=== PATIENT | male | born 1935 | race Caucasian/White ===

== ENCOUNTER 2016-12-06 18:31 | Emergency (ER) | payer BC ==
[~2016-12-06 18:31] MED LIST: ALAWAY0.025 % OPH; ALPHAGAN OPH; ALPHAGAN P0.1 % OPH; ASAB PO; ASABAYER PO; ATRONASAL3 NAS; AVELOX400 PO; BL FLAX SEED1000 MG PO; CALTRAT600 PO; CETIRIZINE5 MG PO; CHLOR-TRIMETON4 MG OR; CIP5 PO; COLON CLEANSE PO; COSOPT OPH; DORZOL/TIMOL1 ML OP; FERROUS SULF325 M1 PO; FISH-EPA1000 MG PO; FLOMAX4 PO; FOSAMAX70 MG PO; LEVAQUIN750 MG PO; LEVOTHYROXIN100 MCG PO; LEVOTHYROXIN125 MCG PO; LEVOTHYROXIN88 MCG PO; LINZESS 145 M145 MCG PO; LIPITOR20 PO; LIPITOR40 PO; LOP25 PO; LOPID6 PO; OS500+D PO; PRAV10 PO; PRILO PO; PROAIR HFA INH; PROSCAR5 PO; PROTONIX PO; SAW PALMETTO PO; SYN.15 PO; TETRABENAZINE 12.5 MG PO; TOPXL25 PO; TUSSIONEX1 ML PO; VIGAMOX OPH; VITAMIN B-121000 MC1 SL; VITAMIN D PO; VITAMIN D1000 UNI1 PO; VITAMIN D400 UNI1 PO; WELLXL150 PO; XALAT OPH; [UNRECOGNIZED DRUG - OTHER] PO; [UNRECOGNIZED DRUG - REMARK]
[2016-12-06 19:28] LABS: BASOPHILS 0 %; EOSINOPHILS 1.1 %; EOSINOPHILS ABSOLUTE 0.09 10/3/uL (0.0-0.53); ER CBC TAT 0 Hrs 03 Mins; HEMATOCRIT 34.3 % (40.0-51.0); HEMOGLOBIN 11.9 g/dL (13.6-17.8); IMMATURE GRANULOCYTES 0.2 %; IMMATURE GRANULOCYTES ABSOLUTE 0.02 10/3/uL (0.0-0.11); LYMPHOCYTES 3.4 %; LYMPHOCYTES ABSOLUTE 0.29 10/3/uL (0.67-4.30); MEAN CORPUS HGB CONC 34.7 g/dL (32.0-36.0); MEAN CORPUSCULAR HEMOGLOB 33.2 pg (26.0-34.0); MEAN CORPUSCULAR VOLUME 95.8 fL (80-100); MEAN PLATELET VOLUME 8.4 fL (9.2-13.0); MONOCYTES 0.8 %; MONOCYTES ABSOLUTE 0.07 10/3/uL (0.21-1.20); NEUTROPHILS 94.5 %; NEUTROPHILS ABSOLUTE 7.99 10/3/uL (2.02-8.40); PLATELET COUNT 167 10/3/uL (150-400); RBC DISTRIBUTION WIDTH 13.2 % (12.0-16.0); RED CELL COUNT 3.58 10/6/uL (4.7-6.1); WHITE BLOOD CELLS 8.5 10/3/uL (4.5-10.5)
[2016-12-06 19:33] LABS: MANUAL DIFF NO %
[2016-12-06 19:39] LABS: ASCORBIC ACID (UR NOT ORDER) 20 (NEG); BILIRUBIN, URINE NEGATIVE (NEG); ER URINALYSIS TAT 0 Hrs 18 Mins; KETONE, URINE NEGATIVE (NEG); LEUKOCYTE ESTERASE(NOT OR LARGE (NEG)
[2016-12-06 19:40] LABS: NITRITE (URINE) POS (NEG); WBC (NOT ORDERED) (RFLEX) > 182 (0-5)
[2016-12-06 19:43] LABS: A/G RATIO 0.9 (0.7-1.9); ALBUMIN 2.9 G/DL (3.5-5.0); BUN (BLOOD UREA NITROGEN) 13 MG/DL (6-23); CALCIUM, SERUM 8.2 MG/DL (8.5-10.4); CHLORIDE, SERUM 98 MMOL/L (96-112); CO2 (CARBON DIOXIDE) 24 MMOL/L (24-34); CREATININE 1.05 MG/DL (0.70-1.30); GFR AFRICAN AMERICAN 76 ML/MIN (>=60); GFR NON AFRICAN AMERICAN 66 ML/MIN (>=60); GLOBULIN 3.3 G/DL (2.5-4.1); GLUCOSE, SERUM 108 MG/DL (60-99); POTASSIUM, SERUM 4.4 MMOL/L (3.5-5.3); SGOT(AST) 10 U/L (5-40); SGPT(ALT) 10 U/L (5-65); TOTAL BILIRUBIN 0.8 MG/DL (0-1.2); TOTAL PROTEIN 6.2 G/DL (6.0-8.5)
[2016-12-06 19:44] LABS: ALKALINE PHOSPHATASE 75 U/L (45-117); SODIUM, SERUM 130 MMOL/L (135-148)
[2016-12-06 19:47] LABS: BAND NEUTROPHILS 9 %; ER DIFF TAT 0 Hrs 22 Mins; LYMPHOCYTES 5 %; LYMPHOCYTES ABSOLUTE (CALC) 0.43 10/3/uL (0.67-4.30); NEUTROPHILS ABSOLUTE (CALC) 8.08 10/3/uL (2.02-8.40); PLATELET ESTIMATE ADQ (ADEQUATE); SEGMENTED NEUTROPHIL (0) 86 %; TOTAL NUCLEATED CELLS 100
[2016-12-06 19:48] LABS: OVALOCYTES 1+ (3-10/OIF) (0-2/OIF); TEARDROP SHAPED RBCS OCC (0-2/OIF)
[2016-12-24] MEDS ORDERED: TETRABENAZINE PO (11:13)
[2016-12-24] MEDS ORDERED: LEVOTHYROXIN137 MCG PO (11:14)
[2016-12-24] MEDS ORDERED: PROTONIX PO (11:14)
[2016-12-24] MEDS ORDERED: FERROUS SULFATE PO (11:16)
[2016-12-24] MEDS ORDERED: SIN25 PO (11:17)
[2016-12-24] MEDS ORDERED: VITAMIN B-12 PO (11:17)
[2016-12-24] MEDS ORDERED: FISH OIL PO (11:18)
[2016-12-24] MEDS ORDERED: ASABAYER PO (11:18)
[2016-12-24] MEDS ORDERED: CALCIUM PO (11:18)
[2016-12-24] MEDS ORDERED: LIPITOR20 PO (11:18)
[2016-12-24] MEDS ORDERED: COSOPT OPH (11:19)
[2016-12-24] MEDS ORDERED: ALPHAGAN OPH (11:19)
[2016-12-24] MEDS ORDERED: XALAT OPH (11:20)
[2017-03-12] MEDS ORDERED: SIN25 PO (13:50)
[2017-03-12] MEDS ORDERED: BACDS PO (13:51)
[2017-03-12] MEDS ORDERED: ATRONASAL6 NAS (13:52)
[2017-03-12] MEDS ORDERED: FERROUS SULF325 M1 PO (13:52)
[2017-03-12] MEDS ORDERED: PROTONIX PO (13:54)
[2017-03-12] MEDS ORDERED: TETRABENAZINE 12.5 MG PO (13:54)
[2017-03-12] MEDS ORDERED: SYNTHROID137 MCG PO (13:54)
[2017-03-12] MEDS ORDERED: STIOLTO RESPIMAT4 GM INH (13:55)
[2017-03-12] MEDS ORDERED: XALAT OPH (13:55)
[2017-03-12] MEDS ORDERED: LIPITOR40 PO (13:55)
[2017-03-12] MEDS ORDERED: ALPHAGAN OPH (13:56)
[2017-03-12] MEDS ORDERED: COSOPT OPH (13:56)
[2017-03-12] MEDS ORDERED: DUONEB INH ×2 (13:57→13:58)
[2017-03-12] MEDS ORDERED: PROAIR HFA INH (13:58)
[2017-03-12] MEDS ORDERED: ASAB PO (13:59)
[2017-03-12] MEDS ORDERED: CALCIUM PO (14:00)
[2017-03-12] MEDS ORDERED: VITAMIN B-12 PO (14:00)
[2017-03-12] MEDS ORDERED: MIRALAX POWDER1 PKT PO (14:01)
[2017-03-12] MEDS ORDERED: FISH OIL PO (14:01)
== END 2016-12-06 22:02 | disposition home or self-care (01) ==
LOC: ER 18:31
PROVIDERS: Emergency Medicine
DX: N39.0 Urinary tract infection, site not specified (principal); Z95.1 Presence of aortocoronary bypass graft; Z86.73 Personal history of transient ischemic attack (TIA), and cerebral infarction without residual deficits; F32.9 Major depressive disorder, single episode, unspecified; I10 Essential (primary) hypertension; D64.9 Anemia, unspecified; Z79.899 Other long term (current) drug therapy; Z79.82 Long term (current) use of aspirin
CPT/HCPCS: 71010; 80053; 81001; 85025; 87040; 87077; 87086; 87186; 96374; 99284; A9270-GY